=== PATIENT | female | born 1985 | race African-American/Black ===

== ENCOUNTER 2016-03-25 17:32 | Emergency (ER) | payer SELFPAY ==
[~2016-03-25] VITALS: Ht 165.1 cm; Wt 56.7 kg
[2016-03-25 18:16] VITALS: BP 132/87
--- NOTE | 2016-03-25 18:31 | Emergency Room Report ---
History of Present Illness General Chief Complaint: Pain Source: Medical Record Present Illness HPI 30-year-old female presents emergency department complaining of bilateral foot pain x1 day in addition to blisters. Patient states that she has been doing a lot of walking and only has high heels. Patient reports several blisters that have popped patient states she is up-to-date with tetanus vaccination. Patient denies fall, or trauma. Patient denies other symptoms at this time. Patient denies nausea vomiting fevers or chills. She denies taking medications or having similar symptoms/lesions elsewhere on the body or oral mucosa. Patient states blisters were not heat-induced. Denies history of immunocompromise . Denies numbness tingling or loss of sensation or gross motor movements of the extremities, incontinence of bowel or bladder. Denies CP, Palpitations, LOC, AMS , dizziness, Changes in Vision, Sensation, paresthesias, or a sudden severe headache. Allergies: Coded Allergies: No Known Allergies (Unverified , 03/25/16) Patient History Past Medical History: see triage record Past Surgical History: none Pertinent Family History: none Last Menstrual Period: unk Now: No Immunizations: UTD Reviewed Nursing Documentation: PMH: Agreed, PSxH: Agreed Nursing Documentation-PMH Past Medical History: No History, Except For Review of Systems All Other Systems: negative except mentioned in HPI Physical Exam Vital Signs Date Time Temp Pulse Resp B/P Pulse Ox O2 Delivery O2 Flow Rate FiO2 03/25/16 17:32 98.1 89 16 127/85 99 Room Air Sp02 EP Interpretation: reviewed, normal General Appearance: no apparent distress, alert, GCS 15, non-toxic Head: normocephalic, atraumatic Eyes: bilateral eye PERRL, bilateral eye normal inspection ENT: hearing grossly normal, normal pharynx, no angioedema, normal voice Neck: full range of motion, supple/symm/no masses Respiratory: chest non-tender, lungs clear, normal breath sounds, speaking full sentences Cardiovascular #1: regular rate, rhythm, no edema Rectal: deferred Musculoskeletal: back normal, gait/station normal, normal range of motion, non- tender, no calf tenderness, swelling - minimal swelling noted to the bilateral LE that do not extend past the ankles, non pitting, evidence of shoe markings. Neurologic: alert, oriented x3, responsive, motor strength/tone normal, sensory intact, speech normal Psychiatric: judgement/insight normal, memory normal, mood/affect normal, no suicidal/homicidal ideation Skin: normal color, no rash, warm/dry, well hydrated, other - 2 blisters to the dorsum of the feet bilaterally approximately 1 cm in size each. The blisters on the left foot have been deroofed prior to arrival. No evidence of secondary infection at this time there are no other lesions on this patient's skin or palms no evidence of oral mucosal involvement. Lymphatic: no adenopathy Medical Decision Making PA Attestation Dr. montgomery is my supervising Physician whom patient management has been discussed with. Diagnostic Impression: Primary Impression: Blister (nonthermal), left foot, initial encounter Additional Impressions: Blister (nonthermal), right foot, initial encounter Foot pain, bilateral ER Course Pt. presents to the ED c/o pain, swelling, and blisters of the feet bilaterally after excessive walking in heels. pt. is UTD with tetanus. pt. states "soldier boy is chasing her" Ddx considered but are not limited to cellulitis,SJS, TEN, blisters, necrotizing fasciitis, insect bite. Vital signs: are WNL, pt. is afebrile H&PE are most consistent with non-thermal related blisters with no evidence of infection or drug reaction. ORDERS: none required at this time, the diagnosis is clinical ED INTERVENTIONS: - wounds are irrigated/cleaned copiously - bacitracin is applied. -Pt is provided with pair of ed non-slip socks. DISCHARGE: At this time pt. is stable for d/c to home. Will provide printed patient care instructions, and any necessary prescriptions. Care plan and follow up instructions have been discussed with the patient prior to discharge. Last Vital Signs Date Time Temp Pulse Resp B/P Pulse Ox O2 Delivery O2 Flow Rate FiO2 03/25/16 18:16 98.0 85 15 132/87 99 Room Air Disposition: HOME, SELF-CARE Condition: Stable Scripts Ibuprofen* (MOTRIN*) 600 Mg Tablet 600 MG ORAL THREE TIMES A DAY, #30 TAB 0 Refills Prov: Carli Gibbons.Preeti. 03/25/16 Referrals: NOT CHOSEN [facility]/MD,REFERRING (PCP) Patient Instructions: Blisters, Peripheral Edema Additional Instructions: Take medications as directed. Follow up with PCP in 3-5 days Return sooner to ED if new symptoms occur, or current symptoms become worse. Carli Gibbons Mar 25, 2016 18:30
[2016-03-25] MEDS: Bacitracin Oint UD TOPIC ONE (18:37)
[2016-03-25] MEDS ORDERED: IBUPROFEN600 MG ORAL (19:19)
[2016-03-25 19:27] VITALS: BP 132/87
== END 2016-03-25 19:28 | disposition home or self-care (01) ==
LOC: EDBD 17:32 → EMR 17:48
DX: S90.822A Blister (nonthermal), left foot, initial encounter (principal); S90.821A Blister (nonthermal), right foot, initial encounter
CPT/HCPCS: 99283